=== PATIENT | female | born 1965 | race Caucasian/White ===

== ENCOUNTER 2016-10-04 06:38 | Day surgery (SDC) | payer OTHER ==
[~2016-10-04] VITALS: Ht 154.9 cm; Wt 54.0 kg
[2016-10-04] VITALS (14 sets, daily range): BP systolic 78–105; BP diastolic 48–65; PULSE 38–80; RESP 9–21; Ht 154.9 cm; Wt 54.0 kg
[~2016-10-04 06:38] MED LIST: BUPIVACAINE 0.25% (MPF) 30 ML INJ INJ ONE; CEFAZOLIN 2 GM/50 ML (PMX) 50 ML IVPB SCH; SOD CHLORIDE 0.9% 1,000 ML IV SCH
[2016-10-04] MEDS ORDERED: BUPIVACAINE 0.25% (MPF) 30 ML INJ ONE (06:53)
[2016-10-04] MEDS ORDERED: LIDOCAINE 2% (SDV) 5 ML INJ ONE (07:00)
[2016-10-04] MEDS ORDERED: CEFAZOLIN 1 GM INJ ONE (07:00)
[2016-10-04] MEDS ORDERED: PROPOFOL 200 MG INJ ONE (07:00)
--- NOTE | 2016-10-04 07:14 | RADRPT ---
PROCEDURE: XR Chest 1 View. CLINICAL INDICATION: Abnormal breath sounds, preop. TECHNIQUE: AP view of the chest were obtained. COMPARISON: None. FINDINGS: The cardiomediastinal silhouette is within normal limits. The lungs are hyperexpanded. No consolidat ions are identified. No pneumothorax is seen. Osseous structures are intact. IMPRESSION: Hyperexpanded, clear lungs. RPTAT: AA .Eber Suarez MD, MD Date Time Electronically viewed and signed by .Eber Suarez MD, on 10/04/2016 07:14 .P/
[2016-10-04 08:32] LABS: BASOPHILS % 0.8 % (0.0-2.0); EOSINOPHILS # 0.1 10^3/ul (0.0-0.5); EOSINOPHILS % 1.8 % (0.0-7.0); HEMATOCRIT 37.8 % (37.0-47.0); HEMOGLOBIN 13.1 g/dl (12.0-16.0); LYMPHOCYTES # 2.5 10^3/ul (0.8-2.9); LYMPHOCYTES % 40.9 % (15.0-51.0); MEAN CORPUSCULAR HEMOGLOBIN 31.4 pg (29.0-33.0); MEAN CORPUSCULAR HGB CONC 34.7 g/dl (32.0-37.0); MEAN CORPUSCULAR VOLUME 90.6 fl (82.0-101.0); MEAN PLATELET VOLUME 10.5 fl (7.4-10.4); MONOCYTE # 0.3 10^3/ul (0.3-0.9); MONOCYTES % 5.4 % (0.0-11.0); NEUTROPHIL # 3.1 10^3/ul (1.6-7.5); NEUTROPHILS % 51.1 % (39.0-77.0); PLATELET COUNT 133 10^3/UL (140-440); RED BLOOD COUNT 4.18 10^6/ul (4.20-5.40); RED CELL DISTRIBUTION WIDTH 12.2 % (11.5-14.5)
[2016-10-04 08:34] LABS: CONDITION 1
[2016-10-04 08:39] LABS: INR 0.92; PROTIME 12.4 Sec (12.2-14.2)
[2016-10-04 08:40] LABS: PARTIAL THROMBOPLASTIN TIME 30.2 Sec (25.0-35.0)
[2016-10-04 09:00] LABS: CALCIUM 9.3 mg/dl (8.4-10.2); CREATININE 0.61 mg/dl (0.44-1.00); POTASSIUM 4.1 mmol/L (3.5-5.1)
[2016-10-04] MEDS ORDERED: FENTAnyl 50 MCG/ML VIAL ONE (09:20)
[2016-10-04] MEDS ORDERED: MIDAZOLAM 1 MG/ML 2 ML INJ ONE (09:20)
[2016-10-04] MEDS ORDERED: LIDOCAINE 2% (MDV) 20 ML INJ ONE (09:31)
[2016-10-04] MEDS ORDERED: BUPIVACAINE 0.5% (SDV) 30 ML INJ ONE (09:31)
[2016-10-04] MEDS ORDERED: MEPERIDINE 25 MG INJ IV PRN (10:00)
[2016-10-04] MEDS ORDERED: FENTAnyl 50 MCG/ML VIAL IV PRN (10:00)
[2016-10-04] MEDS ORDERED: METOCLOPRAMIDE 10 MG INJ IV PRN (10:00)
[2016-10-04] MEDS ORDERED: ONDANSETRON 4 MG INJ IV PRN (10:00)
[2016-10-04] MEDS ORDERED: HYDROmorphONE (0.2 MG/ML) 10ML SYG IV PRN ×2 (10:00)
[2016-10-04] MEDS ORDERED: HYDROCODONE/APAP (5/325) TAB PO ONE (10:00)
--- NOTE | 2016-10-04 12:46 | OPR ---
DATE OF OPERATION: 10/04/2016 INDICATION: This is a 51-year-old female with a recurrent left arm mass. She requests surgical exc ision. Risks, alternatives, benefits, and personnel were discussed with the patient. The patient e xpressed his understanding and consents to the operation. PREOPERATIVE DIAGNOSIS: Recurrent left arm mass. POSTOPERATIVE DIAGNOSIS: Recurrent left arm mass. OPERATION PERFORMED: 1. Excision of recurrent left arm masses a 6 cm incision and 7 cm size mass. 2. Localized adjacent tissue transfer with the use of skin flaps. SURGEON: John Russ MD SPECIMEN: Left arm mass. COMPLICATIONS: None. ANESTHESIA: MAC. DESCRIPTION OF PROCEDURE: The patient was taken to the OR and prepped and draped in usual sterile f ashion. A surgical time out was performed. IV antibiotics were given. An elliptical incision is m dung over the left arm mass with a 15 blade. Dissection cautery was carried down circumferentially a round the mass and excised. There was good hemostasis. Due to the large tissue defect, localized a djacent tissue transfer with the use of skin flaps was performed. Multilayer closure then showed a 3-0 Vicryl and running 4-0 Monocryl. Local anesthesia was injected at the beginning of the case. D ry dressings were applied. Dictated By: JOHN BECERRA/TRACEE Conf#: [id number] DID#: [id number]
--- NOTE | 2016-10-06 15:47 | RADRPT ---
Vent Rate: 56 bpm RR Interval: 0 msec LA Interval: 142 msec QRS Duration: 88 msec QT Interval: 442 msec QTC Interval: 426 msec P-R-T [place]: 45 - 79 - 71 degrees Sinus bradycardia Nonspecific ST abnormality Abnormal ECG Electronically Signed By: Luc Norris [id number]
== END 2016-10-04 11:50 | disposition home or self-care (01) ==
LOC: SDS 06:38
PROVIDERS: ATTEND Surgery
DX: D17.22 Benign lipomatous neoplasm of skin and subcutaneous tissue of left arm (principal)
CPT/HCPCS: 14020; 71010; 80048; 84703; 85025; 85610; 85730; 88307; 93005; J0690; J2250; J3010; Z7512; Z7610

== ENCOUNTER 2018-05-02 11:39 | Day surgery (SDC) | END 2018-05-02 16:40 | disposition home or self-care (01) ==